=== PATIENT | female | born 1970 | race Caucasian/White ===

== ENCOUNTER 2021-03-16 23:37 | Emergency (ER) | payer OTHER ==
[~2021-03-16] VITALS: Ht 165.1 cm; Wt 85.7 kg
[~2021-03-16 23:37] MED LIST: VISTARIL25 MG PO
[2021-03-16] MEDS ORDERED: LEVOTHYROXINE25 MCG PO (23:52)
[2021-03-17] MEDS ORDERED: NORFLEX100MG PO (03:46)
[2021-03-17] MEDS ORDERED: KETO10TA2 PO (03:46)
[2021-03-17] MEDS ORDERED: BACTRIM DS TAB1 EACH PO (03:46)
== END 2021-03-17 04:10 | disposition home or self-care (01) ==
LOC: ER 23:37
DX: M54.5 Low back pain (principal)

== ENCOUNTER 2025-01-18 15:24 | Emergency (ER) | payer OTHER ==
[~2025-01-18] VITALS: Ht 165.1 cm; Wt 93.4 kg
[~2025-01-18 15:24] MED LIST changes: +BACTRIM DS TAB1 EACH PO; +KETO10TA2 PO; +LEVOTHYROXINE25 MCG PO; +NORFLEX100MG PO
[2025-01-18] MEDS ORDERED: GUAIFENESIN/DEXTROMETHORPHAN 100MG/10ML BLIST.PACK PO ONE ×2 (19:45→20:44)
[2025-01-18] MEDS ORDERED: IPRATROPIUM/ALBUTEROL SULFATE 3 ML AMPUL.NEB IH SCH (19:45)
[2025-01-18] MEDS ORDERED: METHYLPREDNISOLONE SOD SUCC 125 MG VIAL IV ONE (19:45)
[2025-01-18] MEDS ORDERED: IPRATROPIUM/ALBUTEROL SULFATE 3 ML AMPUL.NEB IH ONE (20:02)
[2025-01-18] MEDS ORDERED: METHYLPREDNISOLONE SOD SUCC 125 MG VIAL ONE (20:43)
[2025-01-18 21:33] LABS: COVID-19 AG NEGATIVE (NEGATIVE)
[2025-01-18 21:36] LABS: HEMATOCRIT 36.2 % (34.1-44.9); HEMOGLOBIN 11.6 g/dL (11.2-15.7); RED BLOOD COUNT 4.15 M/uL (3.93-5.22)
[2025-01-18 21:37] LABS: BASO % 0.6 % (0.1-1.2); EOS # 0.28 (0.04-0.54); EOS % 4.1 % (0.7-7.0); LYMPH # 3.25 (1.18-3.74); LYMPH % 48.1 % (19.3-53.1); MONO % 8.9 % (4.7-12.5); NEUT # 2.56 (1.56-6.13); PLATELET COUNT 271 K/uL (163-369); RED CELL DISTRIBUTION WIDTH 12.8 % (11.6-14.4)
[2025-01-18 21:52] LABS: ALBUMIN 3.6 gm/dL (3.4-5.0); BILIRUBIN TOTAL 0.31 mg/dL (0.3-1.2); CALCIUM 8.9 mg/dL (8.5-10.1); CREATININE SERUM 0.7 mg/dL (0.55-1.02); GFR 87.2; GLOBULINA 4.4 G/DL (2.4-3.5); INFLUENZA A AG NEGATIVE (NEGATIVE); POTASSIUM 3.49 mEq/L (3.5-5.1)
[2025-01-18] MEDS ORDERED: IPRATROPIU0.2 MG/1 M IH (22:11)
[2025-01-18] MEDS ORDERED: ALBUTEROL1.25 MG/3 IH (22:11)
[2025-01-18] MEDS ORDERED: MEDROLPACK PO (22:11)
[2025-01-18] MEDS ORDERED: ROBAFEN DM 200118 ML PO (22:11)
[2025-01-18] MEDS ORDERED: ZITHROMAX500 MG PO (22:11)
== END 2025-01-18 22:29 | disposition home or self-care (01) ==
LOC: ER 16:41
PROVIDERS: Preventive Medicine Public Health & General Preventive Medicine
DX: J00 Acute nasopharyngitis [common cold] (principal); Z20.822 Contact with and (suspected) exposure to COVID-19